=== PATIENT | female | born 1950 | race Caucasian/White ===

== ENCOUNTER → 2017-12-08 | Outpatient (CLI) | payer OTHER, BC ==
[~2017-12-08] VITALS: Ht 170.2 cm; Wt 67.0 kg
[~2017-12-08] MED LIST: BIOTIN10000 MC1 PO; CALTRATE PLUS1 EACH PO; DAILY VALUE1 EACH PO; FISH OIL GUMMI1 EAC1 PO; FISH OIL GUMMI1 EACH PO; MAGNESIUM400 M1 PO; MOVE FREE JOIN1 EACH PO; MOVE FREE ULTR1 EAC1 PO; TRAMADOL HCL E200 M1 PO; WOMEN'S DAILY1 EAC4 PO
[2017-12-08 14:14] VITALS: BP 128/61
== END | disposition home or self-care (01) ==
LOC: IVINF 12-06 15:00
DX: M85.80 Other specified disorders of bone density and structure, unspecified site (principal)
CPT/HCPCS: 96365; J3489